=== PATIENT | male | born 1955 | race Hispanic/Latino ===

== ENCOUNTER → 2022-07-27 | Outpatient (CLI) | payer MEDICARE ==
[~2022-07-27] MED LIST: ASPI-1005 PO; FAMO20TA8 PO
[2022-07-27 19:24] LABS: APPEARANCE BODY FLUID CLOUDY (CLEAR); BODY FLUID WBC 116 /cu. mm.; COLOR,BODY FLUID YELLOW (LT YELLOW); SPECIMENTYPE,BODY FLUID SYNOVIAL; TOTAL VOLUME,BODY FLUID 45 mL
[2022-07-27 19:25] LABS: BODY FLUID RBC 214 /cu. mm.
[2022-07-27 19:37] LABS: BF LYMPHOCYTE 6 %; BF MONOCYTE 2 %
[2022-07-27 19:43] LABS: CRYSTALS, SYNOVIAL FLUID None Seen
== END | disposition home or self-care (01) ==
LOC: RAH 13:43
PROVIDERS: ATTEND Student in an Organized Health Care Education/Training Program
DX: M25.462 Effusion, left knee (principal)
CPT/HCPCS: 87070; 87076; 87205; 89051; 89060

== ENCOUNTER 2024-05-15 05:40 | Day surgery (SDC) | payer MEDICARE ==
[2024-05-13 11:25] LABS: BASOPHILS # (AUTO) 0.06 K/uL (0.00-0.20); BASOPHILS % (AUTO) 0.7 % (0.0-5.0); EOSINOPHILS # (AUTO) 0.21 K/uL (0.00-0.70); EOSINOPHILS % (AUTO) 2.3 % (0.0-8.0); HEMATOCRIT 46.5 % (42-54); IMMATURE GRANULOCYTE ABSOLUTE 0.05 K/uL (0-1); LYMPHOCYTES # (AUTO) 3.2 K/uL (1.0-4.8); LYMPHOCYTES % (AUTO) 34.7 % (21.0-51.0); MEAN CORPUSCULAR HEMOGLOBIN 30.5 pg (27.0-33.0); MEAN CORPUSCULAR HGB CONC 34.2 g/dL (32.0-36.0); MEAN CORPUSCULAR VOLUME 89.3 fL (79-99); MONOCYTES % (AUTO) 10.8 % (3.0-13.0); NEUTROPHILS # (AUTO) 4.7 K/uL (1.8-7.7); PLATELET COUNT (AUTO) 306 K/uL (130-400); RED BLOOD CELL COUNT(AUTO) 5.21 MIL/uL (4.50-6.20); RED CELL DISTRIBUTION WIDTH 13.3 % (11.0-15.5); WHITE BLOOD COUNT (AUTO) 9.2 K/uL (4.8-10.8)
[2024-05-13 11:40] VITALS: BP 152/74; PULSE 70; RESP 18; TEMP 98.6
[2024-05-13 12:00] LABS: ALBUMIN 3.9 g/dL (3.5-5.0); CREATININE 0.8 mg/dL (0.5-1.3); INR 0.95 (0.85-1.15); PROTHROMBIN TIME 10.1 SEC (9.6-11.6)
[2024-05-13 12:01] LABS: PARTIAL THROMBOPLASTIN TIME 26.7 SEC (26.3-35.5)
--- NOTE | 2024-05-13 12:29 | EKG ---
[facility] Test Date: 2024-05-13 Test Time: 11:19:11 Pat Name: MANOLO NARANJO Department: [facility] Patient [place]: [id number] [id number] Room: [facility] Gender: M [employer] Director: [id number] : 1955 Requested By: HAJA MOHR Order Number: [id number] Reading MD: Sarah Miles Measurements Intervals [place] Rate: 67 P: 37 OH: 163 QRS: -41 QRSD: 135 T: 6 QT: 407 QTc: 429 Interpretive Statements Sinus rhythm RBBB and LAFB Compared to ECG 03/25/2022 21:20:20 Left anterior fascicular block now present Right bundle-branch block now present Sinus tachycardia no longer present Left-axis deviation no longer present Incomplete right bundle-branch block no longer present Electronically Signed On 05-15-2024 14:36:58 CDT by Sarah Miles Please click the below link to view image of tracing.
--- NOTE | 2024-05-14 09:16 | NUR ---
REPORT DR POTTER REVIEWED EKG. OK TO PROCEED
[~2024-05-15] VITALS: Ht 182.9 cm; Wt 104.9 kg
[2024-05-15] VITALS (13 sets, daily range): BP systolic 131–161; BP diastolic 71–85; PULSE 60–69; RESP 14–16; TEMP 97.3–97.6
[~2024-05-15 05:40] MED LIST changes: +ATOR20TA65 PO; -FAMO20TA8 PO; +LOSA1TAB37 PO; +METF-444 PO; +OMEP-420 PO; +TAMS-1 PO
[2024-05-15] MEDS: 0.9%NACL 1000ML 1,000 ML IV ONE (06:46)
[2024-05-15] MEDS: ceFAZolin SODIUM 2 GM VIAL ONE (06:46)
[2024-05-15] MEDS ORDERED: ondanSETRON 4MG INJ ONE ×2 (07:01→08:42)
[2024-05-15] MEDS ORDERED: FENTanyl CITRate PF 50 MCG/1 ML 2ML VIAL ONE ×2 (07:02→08:26)
[2024-05-15] MEDS ORDERED: MIDAZOLAM HCL 1 MG/ML 2ML VIAL ONE (07:02)
[2024-05-15] MEDS ORDERED: proPOFol 10 MG/ML 20ML VIAL IV ONE (07:02)
[2024-05-15] MEDS ORDERED: rocuRONium bROMide 10MG/1ML 5ML VL ONE (07:02)
[2024-05-15] MEDS ORDERED: ACET-2079 PO (07:18)
[2024-05-15] MEDS: ROPivacaine 0.5% 5MG/ML 30ML ONE (07:54)
--- NOTE | 2024-05-15 10:11 | NUR ---
Full and complete discharge instructions given to Patient and Family both verbally and in writing. All questions answered. Tolerating PO fluids well. Voiced understanding to SURGICAL procedure and follow up. Neurovascularly intact. Dressing clean and dry. PIV removed with catheter tip intact. W\C to POV with Family to home.
--- NOTE | 2024-05-15 10:16 | OP ---
Operative Note: DATE OF PROCEDURE: 05/15/24 SURGEON: HAJA MOHR MD SOFTWARE DEVELOPER CONSULTANT: Edy Dorado ANESTHESIA: General ANESTHESIOLOGIST/PREKINDERGARTEN TEACHER: Juanpablo Navarro PREOPERATIVE DIAGNOSIS: Right Carpal tunnel syndrome, right cubital tunnel syndrome POSTOPERATIVE DIAGNOSIS: Right Carpal tunnel syndrome, right cubital tunnel syndrome PROCEDURE: Right carpal tunnel release, right ulnar nerve transposition ESTIMATED BLOOD LOSS: 5 cc INDICATIONS: 69-year-old male with a right carpal and cubital tunnel syndrome. Patient was failing conservative management and had electrodiagnostic studies consistent with compression of the median and ulnar nerves per family. After discussion of the risks, benefits, and alternatives, the patient voluntarily agreed to undergo the aforementioned procedure. DESCRIPTION OF PROCEDURE: Patient was properly identified in the preoperative holding area. Surgical site marking was verified and surgery consent reviewed. The patient was then taken to the operating room and placed in supine position on the OR table. After induction of general anesthesia, preoperative antibiotics were given, all bony prominences were well-padded, and a well padded tourniquet was applied but not inflated at this time. The right upper extremity was then prepped and draped in usual sterile fashion. Surgical timeout was done verifying correct surgery, side, site, and location to be performed. We then began the procedure by exsanguinating the arm using an Esmarch and inflating a tourniquet to 250 mmHg. We made an approximately 2 cm long incision at the ulnar border of the fourth digit, when flexed, on the midpalmar longitudinal crease. Here we came down sharply through the subcutaneous tissue and using a self retaining retractor as well as ragnelles we could visualize the deep tissue. We then identified the transverse carpal ligament and began to come through this a little bit at a time using a 15 blade with small amounts of pressure being applied. The ligament was then released. We directed our attention proximally where we spread above and below the remaining portion of the transverse carpal ligament to break up any adhesions and using a pair of Metzenbaum scissors we slid proximally and transected and the remaining proximal portion of the transverse carpal ligament. Distally, we placed our retractors to help a show the distal extent of the transverse carpal ligament, and we came through this carefully using a 15 blade until we identified the fat surrounding the palmar arch. We used a [place] elevator palpating both the proximal and distal directions to ensure the entire transverse carpal ligament had been released. We then focused our attention on the cubital tunnel marking out a bony landmarks and drawing out our incision. We then used a 15 blade to make an approximately 6 cm long incision. Here we dissected carefully through the subcutaneous tissue. Proximally we were able to identify the ulnar nerve and follow this as it traveled through the cubital tunnel. Using our 15 blade we released the tissue overlying the ulnar nerve and cubital tunnel. We then proceeded proximally and distally releasing tight structures overlying the nerve. We then tested for any remaining tight areas using a freer elevator. The elbow was then taken through a range of motion where we noted the ulnar nerve beginning to subluxate out of the cubital tunnel. We then elected to transpose the ulnar nerve. Using a 15 blade we elevated a fascial sling from the flexor pronator mass. The ulnar nerve was freed up from the remaining soft tissue deep to it. A [place] drain was passed around the ulnar nerve to carefully manipulate it. We then checked proximally and distally for appropriate release of soft tissue to prevent any pressure on the nerve in its transposed location. We freed any remaining tight tissue. We then used a 4-0 Vicryl to repair the sling loosely around the ulnar nerves holding it out of the cubital tunnel in an anteriorly transposed position. We palpated proximally and distally with the [place] elevator to ensure that there were no areas of tightness or constricted tissue around the ulnar nerve in this new course At this point we thoroughly irrigated out the wounds with normal saline and injected the surrounding tissue with half percent Marcaine plain. We then began to repair the tissue here using our 4-0 Vicryl in the subcutaneous tissue and 3- 0 Monocryl with Dermabond applied for the skin. The wrist wound was then closed with 3-0 nylon interrupted simple suture pattern. Soft sterile dressing was applied with Xeroform, 4 x 4's, and Coban at the wrist. Telfa Tegaderm were applied over the elbow incision. The tourniquet was then deflated. The patient was awakened from anesthesia. There were taken to the recovery room in stable condition. HAJA MOHR MD May 15, 2024 10:16
== END 2024-05-15 10:29 | disposition home or self-care (01) ==
LOC: DAH 05:40
PROVIDERS: ATTEND Student in an Organized Health Care Education/Training Program
DX: G56.01 Carpal tunnel syndrome, right upper limb (principal); G56.21 Lesion of ulnar nerve, right upper limb; N40.0 Benign prostatic hyperplasia without lower urinary tract symptoms; I10 Essential (primary) hypertension; E78.5 Hyperlipidemia, unspecified; E66.9 Obesity, unspecified; E11.9 Type 2 diabetes mellitus without complications; Z82.49 Family history of ischemic heart disease and other diseases of the circulatory system; Z82.61 Family history of arthritis; Z88.8 Allergy status to other drugs, medicaments and biological substances; Z68.31 Body mass index [BMI] 31.0-31.9, adult; Z79.899 Other long term (current) drug therapy; Z79.84 Long term (current) use of oral hypoglycemic drugs; Z79.01 Long term (current) use of anticoagulants
CPT/HCPCS: 82040; 80048; 85025; 85610; 85730; 84134; 86140; 36415; 93005; 87641; 64718; 64721; 82948 ×2; A4663; J3010 ×2; J7030; J3490; J2250; J2704; J2405 ×2; J2795; J0690; A6223; A4649 ×2; A4930 ×2; A5120; A4215; A4223; A4222; A4221